=== PATIENT | male | born 1955 | race Caucasian/White ===

== ENCOUNTER 2019-03-19 07:07 | Day surgery (SDC) | payer OTHER ==
[~2019-03-19] VITALS: Ht 165.1 cm; Wt 78.9 kg
[2019-03-19] MEDS ORDERED: fentaNYL 0.05 MG/ML VIAL ONE (08:55)
[2019-03-19] MEDS ORDERED: LIDOCAINE 2% 100 MG/5 ML UJET TP ONE (08:56)
[2019-03-19] MEDS ORDERED: KETOROLAC 60 MG/2 ML VIAL IM ONE (09:05)
== END 2019-03-19 09:50 | disposition home or self-care (01) ==
LOC: MDS 07:07 → MMU 07:17 → MDS 09:50
PROVIDERS: ATTEND Internal Medicine Gastroenterology
DX: Z12.11 Encounter for screening for malignant neoplasm of colon (principal); Z87.01 Personal history of pneumonia (recurrent)
CPT/HCPCS: 45378; J1885; J3010